=== PATIENT | female | born 1980 | race Caucasian/White ===

== ENCOUNTER 2016-06-21 19:42 | Inpatient (IN) | payer OTHER ==
--- NOTE | ~2016-06-21 | DS ---
Unit #: [id number] #: [id number] Patient: LING HART [id number] [address] [address] [id number] I MR#: [id number] NAME: LING HART ROOM: 573 Age: 36 Sex: F Admission Date: 06/21/2016 : 1980 Discharge Date: 06/24/2016 Attending Physician: Elaine Sanon M.D. Primary Care Physician: No Primary Care Physician DISCHARGE SUMMARY DISCHARGE DIAGNOSES 1. Acute hypercapnic/hypoxic respiratory failure requiring ventilation. 2. Elevated troponin secondary to non-ST myocardial infarction elevation, type 2, from drug abuse. 3. Sepsis from pneumonia with septic shock requiring intravenous Levophed. 4. Drug overdose with heroin IV and amphetamines. 5. Pneumonia, most likely aspiration. 6. Acute kidney injury. 7. Hypoglycemia. 8. Moderate protein malnutrition. 9. Hypercalcemia. 10. Hyperphosphatemia. 11. Anemia, no acute bleeding. 12. Urinary tract infection. CONSULTATION Dr. Persaud. PROCEDURES None. LAB DATA ABG - pH 7.22, carbon dioxide 55, oxygen 140. BMP on discharge - sodium 139, potassium 3.9, creatinine 0.6, albumin 2.3, magnesium 1.8. Liver enzymes normal. WBC 9.6, hemoglobin 10.3, platelets 174. IMAGING: Chest x-ray shows bilateral infiltrates. CAT scan of the head - no acute disease. Blood culture negative. Urine culture negative. Sputum culture not done. ALLERGIES Tetracycline. DISCHARGE MEDICATIONS Augmentin 875 mg p.o. b.i.d. for seven days. Unit #: [id number] #: [id number] Patient: LING HART HOSPITALIZATION COURSE 36-year-old admitted after drug abuse. Acute hypocapnic/hypoxic respiratory failure from intravenous drug abuse: The patient was intubated, later extubated. Sepsis from bilateral pneumonia, likely aspiration with septic shock requiring intravenous fluids, on Levophed, resolved: Patient received broad spectrum antibiotics. Upon time of discharge, the patient will be discharged on Augmentin for seven days. Patient was seen by Dr. Saucedo. Elevated troponin secondary to type 2 myocardial infarction from drug abuse: Patient was seen by cardiology. They recommended no workup needed. Drug abuse with heroin and amphetamines: Advised to quit. Acute kidney injury, most likely secondary to drug abuse and infection: Patient received IV fluids. At the time of discharge, creatinine stable. Hypoglycemia: Replaced with D5. Urinary tract infection: Patient received IV antibiotics. Culture is negative. Hypomagnesemia: Replaced with p.o. magnesium. Mild to moderate protein malnutrition: Advised high calorie diet. Patient discharged home. Follow with family physician in one week time. Follow with Dr. Olivas in two weeks time. Dictated by... Klaudia Gamble/yazan TD: 06/30/2016 11:00 JOB #: [id number] DISCHARGE SUMMARY Page 1 of 1 X Elaine Sanon MD X DISCHARGE SUMMARY
--- NOTE | ~2016-06-21 | CR72 ---
[facility] A Service [facility] RADIOLOGY TEXT RESULTS PATIENT: LING HART LOCATION: [facility] : 81 UNIT #: [id number] AGE: [address]: Elaine Sanon MD SEX: F ORDER DR: [id number] [address] [place], [place] [address] [id number] I MR#: [id number] Acc #: [id number] NAME: LING HART : 1980 SEX: F STUDY DATE/TIME: 06/22/2016 2:28 UNIT: [facility] ROOM: [facility] STUDY DESCRIPTION: CR Chest Single View Portable Attending Physician: Elaine Sanon M.D. Ordering Physician: Marlin Chatman M.D. Primary Care Physician: Primary Care Physician No MEDICAL IMAGING REPORT This report is preliminary unless electronic signature is present REVISED REPORT EXAM AP portable chest, 06/22/2016. HISTORY PICC placement. Respiratory failure. Endotracheal tube in place. TECHNIQUE AP portable chest x-ray. FINDINGS Newly placed right arm PICC is in good position with tip in the [id number] SVC. Endotracheal tube remains in good position. There is significantly improved overall lung expansion since the earlier study, and diffuse interstitial infiltrate or edema has improved. Mild interstitial opacity in the perihilar regions. No airspace consolidation, pneumothorax or pleural effusion. Heart size normal. Feeding tube in good position within the stomach. IMPRESSION 1. Newly placed PICC in good position. 2. Improved overall lung expansion with improvement in diffuse interstitial pulmonary edema since the earlier exam. ACCESSION NUMBER REVISED Dictated by... [facility] A Service [facility] RADIOLOGY TEXT RESULTS PATIENT: LING HART LOCATION: [facility] : 81 UNIT #: [id number] AGE: [address]: Elaine Sanon MD SEX: F ORDER DR: Ranjan Gil M.D. THIS IS AN ELECTRONICALLY VERIFIED REPORT Ranjan Gil M.D. at 06/24/2016 9:51 PM SARAH/mehdi TD: 06/22/2016 12:35 JOB #: [id number] MEDICAL IMAGING REPORT Page 1 of 1 COPY
--- NOTE | ~2016-06-21 | CO ---
Unit #: [id number] #: [id number] Patient: LING HART [id number] [facility]. [place], [place] [address] [id number] I MR#: [id number] NAME: LING HART ROOM: 573 Age: 36 Sex: F Admission Date: 06/21/2016 : 1980 Attending Physician: Elaine Sanon M.D. Consultation Date: 06/22/2016 CONSULTATION REPORT HISTORY OF PRESENT ILLNESS This is a 36-year-old white female patient, admitted with drug overdose. A bystander at the [facility] called EMS, who found her blood sugar to be 22. The patient was given D50. She had respiratory failure and she was intubated. Drug screen was positive for amphetamines, opioids. She also has history of heroin abuse. She has no history of prior myocardial infarction or congestive heart failure. No history of rheumatic fever or congenital heart disease. Chest x-ray shows bilateral infiltrates possibly aspiration pneumonia. She has been treated with antibiotics. She was hypotensive and was treated with the Levophed. She is going to be extubated today. Her EKG shows normal sinus rhythm, nonspecific ST-T changes. Her troponin today was found to be 0.98. She has no hypertension, diabetes, or hyperlipidemia. PERSONAL HISTORY She is a nonsmoker. Does not drink alcohol. FAMILY HISTORY Negative for premature coronary artery disease or sudden . PAST SURGICAL HISTORY None. REVIEW OF SYSTEMS No fever, chills, night sweats, or weight loss. The rest is negative according to the chart. PHYSICAL EXAMINATION VITAL SIGNS: Blood pressure 115/80, heart rate 70 per minute, respiratory rate is 16 per minute. GENERAL APPEARANCE: The patient is well developed. HEENT: Oral mucosa without cyanosis or pallor. No xanthelasma. NECK: No JVD. CARDIOVASCULAR: Regular rate and rhythm. PMI is nondisplaced on auscultation. S1 and S2 normal. No S3, S4, murmur, rubs, or clicks noted. VASCULAR: Carotid pulses are brisk without bruit. Abdominal aorta without bruit. Femoral and pedal pulses are normal with normal pulse amplitude. LUNGS: Clear to auscultation without rales, rhonchi, or wheezes. No accessory muscle use noted. ABDOMEN: Soft, nontender. No hepatosplenomegaly. RECTAL: Deferred. EXTREMITIES: Warm and dry. No cyanosis or clubbing. No pedal edema. MUSCULOSKELETAL: No scoliosis. Unit #: [id number] #: [id number] Patient: LING HART DERMATOLOGY: No stasis dermatitis. NEUROLOGIC: Alert and oriented x3. Pleasant affect. DIAGNOSTIC STUDIES LABORATORY RESULTS: Glucose 107, BUN 24, creatinine 1.0, sodium 138, potassium 4.3, magnesium 2.2. WBC 5.7, hemoglobin 12, hematocrit is 36.6, and platelet count 205,000. IMPRESSION 1. Drug overdose. 2. Acute respiratory failure. 3. Bilateral pneumonia, possibly aspiration pneumonia. 4. Elevated troponin, type 2 infarct. PLAN We will get an echocardiogram. The patient will be extubated today. We will follow with you. Thank you for letting me participate in her care. Dictated by... Ramez Persaud M.D. CRIS/allan TD: 06/23/2016 01:42 JOB #: [id number] CONSULTATION REPORT Page 1 of 1 X Ramez Persaud MD X CONSULTATION REPORT
--- NOTE | ~2016-06-21 | CR72 ---
[facility] A Service of [facility] & [facility] RADIOLOGY TEXT RESULTS PATIENT: LING HART LOCATION: [facility] 573-01 : [birth year] UNIT #: [id number] AGE: [address]: Elaine Sanon MD SEX: F ORDER DR: [id number] [facility] [address] [facility]. [place], [place] [address] [id number] I MR#: [id number] Acc #: [id number] NAME: LING HART : 1980 SEX: F STUDY DATE/TIME: 06/21/2016 16:49 UNIT: [facility] ROOM: [facility] STUDY DESCRIPTION: CR Chest Single View Portable Attending Physician: Elaine Sanon M.D. Ordering Physician: Aron Hanley M.D. Primary Care Physician: Primary Care Physician No MEDICAL IMAGING REPORT This report is preliminary unless electronic signature is present EXAM Portable chest 06/21/2016 INDICATIONS Intubation today, mental status changes today with shortness of air. FINDINGS AP portable chest was obtained. No comparison. Cardiac mediastinal contours are normal. There are diffuse bilateral infiltrates which probably reflect edema, although edema pneumonia not excluded. No pneumothorax is seen. ET tube in good position in the mid to lower trachea. IMPRESSION Well-positioned ET tube. Diffuse bilateral infiltrates probably reflect edema, although pneumonia could have this appearance as well. Dictated by... Ancelmo Marin Jr., M.D. THIS IS AN ELECTRONICALLY VERIFIED REPORT Ancelmo Marin Jr., M.D. at 06/25/2016 2:10 PM [place]/chip TD: 06/22/2016 07:31 JOB #: [id number] MEDICAL IMAGING REPORT Page 1 of 1 COPY
--- NOTE | ~2016-06-21 | EKG ---
PATIENT: ROGELIO MEDINA UNIT #: [id number] Ventricular Rate: 64 BPM Atrial Rate: 64 BPM P-R Interval: 166 ms QRS Duration: 122 ms Q-T Interval: 516 ms QTC Calculation(Bezet): 532 ms P Newhall: 74 degrees Calculated R Newhall: 68 degrees Calculated T Newhall: 65 degrees Diagnosis Line: Normal sinus rhythm Diagnosis Line: Non-specific intra-ventricular conduction delay Diagnosis Line: Borderline ECG Diagnosis Line: No previous ECGs available Diagnosis Line: Confirmed by GERARDO PRADO MD ([id number]) on Diagnosis Line: 06/22/2016 2:24:36 PM INTERPRETING MD: JOHAN PATRICIO
--- NOTE | ~2016-06-21 | CR7 ---
[facility] A Service of [facility] & [facility] RADIOLOGY TEXT RESULTS PATIENT: LING HART LOCATION: [address] : [birth year] UNIT #: [id number] AGE: [address]: Elaine Sanon MD SEX: F ORDER DR: [id number] [facility] [address] [facility] [place], [place] [address] [id number] I MR#: [id number] Acc #: [id number] NAME: ROGELIO MEDINA : 1980 SEX: F STUDY DATE/TIME: 06/22/2016 0:02 UNIT: [facility] ROOM: [facility] STUDY DESCRIPTION: CR Abdomen Single AP View Attending Physician: Elaine Sanon M.D. Ordering Physician: Marlin Chatman M.D. Primary Care Physician: Primary Care Physician No MEDICAL IMAGING REPORT This report is preliminary unless electronic signature is present EXAM Portable abdomen for Dobbhoff tube placement 06/22/2016 HISTORY Dobbhoff tube placement. FINDINGS Newly placed Dobbhoff tube is in good position within the mid and upper stomach at 0002 hours on 06/22/2016. Dictated by... Ranjan Gil M.D. THIS IS AN ELECTRONICALLY VERIFIED REPORT Ranjan Gil M.D. at 06/22/2016 9:42 PM SARAH/ashley TD: 06/22/2016 12:07 JOB #: [id number] MEDICAL IMAGING REPORT Page 1 of 1 COPY
--- NOTE | ~2016-06-21 | CT71 ---
[facility] A Service of [facility] RADIOLOGY TEXT RESULTS PATIENT: LING HART LOCATION: [address] : [birth year] UNIT #: [id number] AGE: [address]: Elaine Sanon MD SEX: F ORDER DR: [id number] [facility] [address] [facility]. [place], [place] [address] [id number] I MR#: [id number] Acc #: [id number] NAME: ROGELIO MEDINA : 1980 SEX: F STUDY DATE/TIME: 06/21/2016 17:02 UNIT: [facility] ROOM: [facility] STUDY DESCRIPTION: CT Head Wo Contrast Attending Physician: Elaine Sanon M.D. Ordering Physician: Aron Hanley M.D. MEDICAL IMAGING REPORT This report is preliminary unless electronic signature is present EXAM Head CT 06/21/2016 INDICATIONS Patient confused, combative, disoriented today prior to arrival and subsequently was intubated. Additional history is unknown at this time. TECHNIQUE This CT exam was performed with one or more of the following radiation dose reduction techniques: Automatic exposure control, adjustment of mA and/or kV according to patient size, and iterative reconstruction. FINDINGS Axial images were obtained from the base of the vertex without contrast. No comparison. Ventricular size and configuration are normal. No acute infarct or hemorrhage is seen. There are no masses. There are no skull fractures. IMPRESSION Negative noncontrast head CT Dictated by... Ancelmo Marin Jr., M.D. THIS IS AN ELECTRONICALLY VERIFIED REPORT Ancelmo Marin Jr., M.D. at 06/22/2016 4:22 PM NATASHAK/chip TD: 06/22/2016 07:44 JOB #: [id number] [facility] A Service of [facility] RADIOLOGY TEXT RESULTS PATIENT: LING HART LOCATION: [place] [address] : [birth year] UNIT #: [id number] AGE: [address]: Elaine Sanon MD SEX: F ORDER DR: MEDICAL IMAGING REPORT Page 1 of 1 COPY
--- NOTE | ~2016-06-21 | CR72 ---
[facility] A Service of [facility] RADIOLOGY TEXT RESULTS PATIENT: ARIANNA VOGEL LOCATION: [facility] 573-01 : 81 UNIT #: [id number] AGE: [address]: Elaine Sanon MD SEX: F ORDER DR: [id number] [facility] [address] [facility]. [place], [place] [address] [id number] I MR#: [id number] Acc #: [id number] NAME: ARIANNA VOGEL : 1980 SEX: F STUDY DATE/TIME: 06/23/2016 3:26 UNIT: [facility] ROOM: [facility] STUDY DESCRIPTION: CR Chest Single View Portable Attending Physician: Elaine Sanon M.D. Ordering Physician: Elaine Sanon M.D. Primary Care Physician: No Primary Care Physician MEDICAL IMAGING REPORT This report is preliminary unless electronic signature is present EXAM AP portable chest, 06/23/2016. Arianna Vogel, although she is listed in the DR as Roland Abdul. which is a Jenny holt name. There are all kinds of demographic mismatches here with priors because they admitted her as the Jenny Holt. HISTORY 36-year-old female with respiratory failure. Follow up cardiopulmonary status. TECHNIQUE AP portable chest x-ray. FINDINGS Mild diffuse mixed interstitial and airspace opacity, greatest in the perihilar regions, most likely representing pulmonary edema. This appears slightly increased since yesterday but is significantly improved since 06/21/2016. Peripheral lungs are clear. No visible pleural effusion. Heart size normal. PICC in good position. IMPRESSION Jdrl-jm-hyxtsaee diffuse interstitial opacity, greatest in the perihilar regions, most likely representing pulmonary edema. This has slightly increased since yesterday but is likely exaggerated by shallow lung expansion. Dictated by... Ranjan Gil M.D. THIS IS AN ELECTRONICALLY VERIFIED REPORT Ranjan Gil M.D. at 06/23/2016 10:06 PM RGW/gz [facility] A Service of [facility] & [facility] RADIOLOGY TEXT RESULTS PATIENT: ARIANNA VOGEL LOCATION: [address] 573-01 : [birth year] UNIT #: [id number] AGE: [address]: Elaine Sanon MD SEX: F ORDER DR: TD: 06/23/2016 13:25 JOB #: [id number] MEDICAL IMAGING REPORT Page 1 of 1 COPY
--- NOTE | ~2016-06-21 | CR63 ---
[facility] A Service of [facility] & [facility] RADIOLOGY TEXT RESULTS PATIENT: LING HART LOCATION: [facility] 573-01 : 81 UNIT #: [id number] AGE: [address]: Elaine Sanon MD SEX: F ORDER DR: [id number] [facility] [address] [facility]. [place], [place] [address] [id number] I MR#: [id number] Acc #: [id number] NAME: LING HART : 1980 SEX: F STUDY DATE/TIME: 06/23/2016 16:15 UNIT: [facility] ROOM: 3 STUDY DESCRIPTION: CR Chest 2 View Attending Physician: Elaine Sanon M.D. Ordering Physician: Elaine Sanon M.D. Primary Care Physician: No Primary Care Physician MEDICAL IMAGING REPORT This report is preliminary unless electronic signature is present EXAM PA and lateral chest dated 06/23/2016 COMPARISON 06/23/16. HISTORY Shortness of breath for a few days, pneumonia FINDINGS PA and lateral views of the chest are obtained. The heart size is normal. The lungs shows some patchy perihilar pulmonary infiltrates unchanged from the previous study. There is an infiltrate seen posteriorly at the left base best appreciated on the lateral view. CONCLUSION Patchy perihilar pulmonary infiltrates unchanged. Left lower lobe infiltrate best appreciated on the lateral radiograph. Dictated by... Sonido Green M.D. THIS IS AN ELECTRONICALLY VERIFIED REPORT Sonido Green M.D. at 06/24/2016 10:35 AM [place] TD: 06/23/2016 22:15 JOB #: [id number] MEDICAL IMAGING REPORT Page 1 of 1 COPY
--- NOTE | ~2016-06-21 | HP ---
Unit #: [id number] #: [id number] Patient: ROGELIO MEDINA [id number] [address] [place], [place] [address] [id number] MR#: [id number] NAME: ROGELIO MEDINA ROOM: 14917 Age: Sex: F Admission Date: 06/21/2016 : Attending Physician: Debo Drake M.D. Primary Care Physician: Primary Care Physician No HISTORY AND PHYSICAL CHIEF COMPLAINT Altered mental status. HISTORY OF PRESENT ILLNESS The patient is brought to the emergency room with altered mental status. The patient was found have sugar of 22 in the field by EMS. The patient was given D50. The patient was suspected overdose. The EMS was called for reported overdose. The patient has unknown name and unknown date of . The call [facility]. The patient was found to be in moderate respiratory distress at the arrival and more incoherent. The patient received 2 amps of D50. Then patient was intubated to protect the airways. The patient is positive for a drug overdose with amphetamines and opiates. The patient is unable to provide any history as the patient is status post intubation and sedation on Versed. The patient's chest x-ray shows bilateral infiltrate concerning for pneumonia versus edema. Patient has been admitted for the above reasons. PAST MEDICAL HISTORY None. PAST SURGICAL HISTORY None. HOME MEDICATIONS No information available. ALLERGIES No known allergies. FAMILY HISTORY Unable to obtain. REVIEW OF SYSTEMS Unable to obtain. PHYSICAL EXAMINATION VITAL SIGNS: Patient is on a Chelsea Hugger with a temperature of 92.1 at the time of arrival, pulse 69, blood pressure 116/86, saturating 100% on ventilation. HEENT: Atraumatic, normocephalic. Pupils sluggish to react. NECK: Supple. Status post right IJ. LUNGS: Coarse breath sounds and decreased breath sounds. Decreased air entry at the bases. Positive for rales. Unit #: [id number] #: [id number] Patient: ROGELIO MEDINA HEART: Regular rate and rhythm. ABDOMEN: Soft, positive bowel sounds. EXTREMITIES: No cyanosis, no clubbing. NEUROLOGIC: Status post intubation and sedation. PSYCHIATRIC: Unable to assess. DIAGNOSTIC STUDIES LABORATORY: pH 7.22, pCO2 is 55, pO2 is 140, bicarb 22.7, oxygen saturation 97.9. Glucose 89, BUN 22, creatinine 1.6, sodium 139, potassium 2.8, chloride 103, bicarb 23, calcium 8.7, phosphorus 8.1, magnesium 2.2, total protein 7.5, albumin 3.8, AST 107, ALT 52, alkaline phosphatase is 91. Amylase 44, lipase 78. Ammonia is 45. Lactic acid is 5.4. INR is 1. Troponin less than 0.05. CKMB 8.1. WBC 9.3, hemoglobin 13.6, hematocrit 42.1, platelets 301, neutrophils 35.4. Urine toxicology screen is positive for amphetamines and opiates. UA shows 2+ protein, 1+ urobilinogen, 10-25 wbc's. IMAGING: CT of the head shows no acute intracranial pathology. CARDIOVASCULAR: EKG shows normal sinus rhythm, nonspecific intraventricular conduction delay with QTC of 532. ASSESSMENT AND PLAN 1. Acute respiratory failure. 2. Hypoglycemia. 3. Drug overdose. 4. Acute kidney injury. 5. Sepsis. 6. Pneumonia versus edema. PLAN 1. Admit patient as inpatient in ICU. 2. Patient will have IV placed with D5 NS at 125 mL per hour. 3. Continue with empiric antibiotics with vancomycin and Zosyn. 4. Replace the potassium per protocol. 5. Continue sepsis protocol. 6. Check echocardiogram. 7. Check troponins x2. 8. Obtain records as police have been present, sent to the scene. 9. Further recommendations will follow as more lab results become available. Dictated by Klaudia Gilbert TD: 06/21/2016 20:17 JOB #: [id number] Unit #: [id number] #: [id number] Patient: ROGELIO MEDINA HISTORY AND PHYSICAL X X HISTORY AND PHYSICAL
[2016-06-21 17:10] LABS: POC - CKMB 8.1 ng/mL (0.0-7.9); POC - TROPONIN <0.05 ng/mL (<=0.05)
[2016-06-21 17:13] LABS: BASOPHIL% 0.2 % (0-2.5); EOSINOPHIL% 0.2 % (0.0-7.0); HEMATOCRIT 42.1 % (35.0-45.0); HEMOGLOBIN 13.6 gm/dL (12.0-16.0); LYMPHOCYTE# 1.2 X10e3 (1.0-3.5); LYMPHOCYTE% 12.7 % (17.0-45.0); MEAN CELL VOLUME 87.6 FL (83-96); MEAN CORPUSCULAR HEMOGLOBIN 28.3 PG (28-34); MEAN CORPUSCULAR HGB CONC 32.3 g/dL (30-36); MEAN PLATELET VOLUME 8.3 FL (6.5-11.5); MONOCYTE# 0.1 X10e3 (0-1.0); MONOCYTE% 1.5 % (3.0-12.0); NEUTROPHIL% 85.4 % (40-75); PLATELET COUNT 301 X10e3 (140-420); RED CELL DISTRIBUTION WIDTH 14.6 % (11.0-15.5); WHITE BLOOD COUNT 9.3 X10e3 (4.0-10.5)
[2016-06-21 17:17] LABS: URINE APPEARANCE CLOUDY; URINE BILIRUBIN NEG (NEG); URINE BLOOD 1+ (NEG); URINE COLOR YELLOW; URINE GLUCOSE NEG (NEG); URINE KETONE NEG (NEG); URINE LEUKOCYTE ESTERASE NEG (NEG); URINE NITRATE NEG (NEG); URINE PH 5.5 (5-8); URINE PROTEIN 2+ (NEG)
[2016-06-21 17:19] LABS: PARTIAL THROMBOPLASTIN TIME 24.4 SECONDS (23.5-31.3); PROTHROMBIN TIME (PATIENT) 10.7 SECONDS (9.6-11.5)
[2016-06-21 17:20] LABS: CULTURE INDICATED? YES; URBCS1 AUWI 0-2 /[HPF] (0-2); URINE BACTERIA AUWI 1+ (NEGATIVE); URINE SQUAMOUS EPITHELIAL CELL MOD /[HPF]
[2016-06-21 17:21] LABS: DIFF IND NO
[2016-06-21 17:27] LABS: ALBUMIN SERUM 3.8 g/dL (3.5-5.0); BILIRUBIN, DIRECT 0.2 mg/dL (0.0-0.2); BILIRUBIN,INDIRECT 0.6 mg/dL (0.0-0.9); BILIRUBIN,TOTAL 0.8 mg/dL (0.2-2.0); BUN/CREATININE RATIO 13.75; CALCIUM SERUM 8.7 mg/dL (8.4-10.2); CREATININE SERUM 1.6 mg/dL (0.6-1.4); GLOM FILT RATE Estimated 28.4 mL/min (>60); MAGNESIUM 2.2 mg/dL (1.6-3.0); PROTEIN TOTAL SERUM 7.5 g/dL (6.0-8.3)
[2016-06-21 17:35] LABS: PHOSPHOROUS 8.1 mg/dL (2.5-4.6); POTASSIUM 2.8 mmol/L (3.5-5.1); U HYALINE CASTS AUWI 0-2 /[LPF]; URINE GRANULAR CAST 0-2 /[HPF]; URINE MUCUS PRESENT; URINE SOURCE CATH; URINE WHITE BLOOD CELL CAST 0-2 /[HPF]
[2016-06-21 17:38] LABS: ARTERIAL BLD GAS O2 SATURATION 97.9 % (90.0-100.0); ARTERIAL BLOOD GAS CARBOXY HB 0.1 %sat (0.0-9.0); ARTERIAL BLOOD GAS HCO3 22.7 mmol/L; ARTERIAL BLOOD GAS MET HB 0.8 %sat (0.0-2.0); ARTERIAL BLOOD GAS pH 7.224 (7.350-7.450)
[2016-06-21 17:40] LABS: AMPHETAMINE POS (NEG); BARBITURATES NEG (NEG); BENZODIAZEPINES NEG (NEG); COCAINE NEG (NEG); MARIJUANA NEG (NEG); OPIATES POS (NEG); TRICYCLIC ANTIDEPRESSANTS NEG (NEG); U METHADONE NEG (NEG)
[2016-06-21 17:40] LABS: ARTERIAL BLOOD GAS ALLEN TEST NORMAL; ARTERIAL BLOOD GAS ART SITE RIGHT RADIAL; ARTERIAL BLOOD GAS VENT MODE AC; ARTERIAL DRAW? YES
[2016-06-21 21:24] LABS: ARTERIAL BLD GAS O2 SATURATION 99.9 % (90.0-100.0); ARTERIAL BLOOD GAS HCO3 24.5 mmol/L; ARTERIAL BLOOD GAS MET HB 0.8 %sat (0.0-2.0); ARTERIAL BLOOD GAS PCO2 42.5 mmHg (35.0-45.0); ARTERIAL BLOOD GAS pH 7.368 (7.350-7.450)
[2016-06-21 21:28] LABS: ARTERIAL BLOOD GAS ART SITE RIGHT RADIAL; ARTERIAL BLOOD GAS DELIVERY VENT; ARTERIAL BLOOD GAS VENT MODE A/C; ARTERIAL DRAW? YES
[2016-06-21 21:46] LABS: CALCIUM SERUM 8.4 mg/dL (8.4-10.2); CREATININE SERUM 1.2 mg/dL (0.6-1.4); GLOM FILT RATE Estimated 39.6 mL/min (>60)
[2016-06-22 04:40] LABS: ARTERIAL BLD GAS O2 SATURATION 99.9 % (90.0-100.0); ARTERIAL BLOOD GAS HCO3 22.3 mmol/L; ARTERIAL BLOOD GAS MET HB 0.7 %sat (0.0-2.0); ARTERIAL BLOOD GAS PCO2 33.3 mmHg (35.0-45.0); ARTERIAL BLOOD GAS pH 7.434 (7.350-7.450)
[2016-06-22 05:23] LABS: ARTERIAL BLOOD GAS ALLEN TEST NORMAL; ARTERIAL BLOOD GAS ART SITE RIGHT RADIAL; ARTERIAL DRAW? YES
[2016-06-22 05:24] LABS: ARTERIAL BLOOD GAS VENT MODE AC
[2016-06-22 05:30] LABS: BASOPHIL% 0.1 % (0-2.5); EOSINOPHIL% 0.4 % (0.0-7.0); HEMATOCRIT 36.6 % (35.0-45.0); LYMPHOCYTE# 0.9 X10e3 (1.0-3.5); MEAN CELL VOLUME 85.9 FL (83-96); MEAN CORPUSCULAR HEMOGLOBIN 28.1 PG (28-34); MEAN CORPUSCULAR HGB CONC 32.7 g/dL (30-36); MEAN PLATELET VOLUME 8.8 FL (6.5-11.5); MONOCYTE# 0.3 X10e3 (0-1.0); MONOCYTE% 4.8 % (3.0-12.0); NEUTROPHIL# 4.5 X10e3 (1.5-7.1); NEUTROPHIL% 78.7 % (40-75); PLATELET COUNT 205 X10e3 (140-420); RED BLOOD COUNT 4.25 X10e (3.90-5.30); RED CELL DISTRIBUTION WIDTH 14.3 % (11.0-15.5); WHITE BLOOD COUNT 5.7 X10e3 (4.0-10.5)
[2016-06-22 05:42] LABS: DIFF IND NO
[2016-06-22 06:09] LABS: GLOM FILT RATE Estimated 48.8 mL/min (>60); POTASSIUM 4.3 mmol/L (3.5-5.1)
[2016-06-22 13:10] LABS: ARTERIAL BLD GAS O2 SATURATION 97.4 % (90.0-100.0); ARTERIAL BLOOD GAS ALLEN TEST NORMAL; ARTERIAL BLOOD GAS CARBOXY HB 0.2 %sat (0.0-9.0); ARTERIAL BLOOD GAS HCO3 21.6 mmol/L; ARTERIAL BLOOD GAS MET HB 1.6 %sat (0.0-2.0); ARTERIAL BLOOD GAS PCO2 40.4 mmHg (35.0-45.0); ARTERIAL BLOOD GAS pH 7.337 (7.350-7.450); ARTERIAL DRAW? YES
[2016-06-22 13:11] LABS: ARTERIAL BLOOD GAS ART SITE LEFT RADIAL; ARTERIAL BLOOD GAS DELIVERY VENT; ARTERIAL BLOOD GAS VENT MODE CPAP
[2016-06-22 13:29] LABS: INFLUENZA A NEG (NEG); INFLUENZA B NEG (NEG)
[2016-06-23 05:12] LABS: ARTERIAL BLD GAS O2 SATURATION 95.7 % (90.0-100.0); ARTERIAL BLOOD GAS CARBOXY HB 0.4 %sat (0.0-9.0); ARTERIAL BLOOD GAS HCO3 21.8 mmol/L; ARTERIAL BLOOD GAS MET HB 0.8 %sat (0.0-2.0); ARTERIAL BLOOD GAS PCO2 34.6 mmHg (35.0-45.0); ARTERIAL BLOOD GAS PO2 87.4 mmHg (80.0-100); ARTERIAL BLOOD GAS pH 7.407 (7.350-7.450)
[2016-06-23 05:24] LABS: BASOPHIL% 0.2 % (0-2.5); EOSINOPHIL# 0.1 X10e3 (0-0.7); EOSINOPHIL% 1.3 % (0.0-7.0); HEMATOCRIT 30.6 % (35.0-45.0); HEMOGLOBIN 10.1 gm/dL (12.0-16.0); LYMPHOCYTE% 9.4 % (17.0-45.0); MEAN CELL VOLUME 86.2 FL (83-96); MEAN CORPUSCULAR HEMOGLOBIN 28.5 PG (28-34); MEAN CORPUSCULAR HGB CONC 33.1 g/dL (30-36); MEAN PLATELET VOLUME 8.6 FL (6.5-11.5); MONOCYTE# 0.3 X10e3 (0-1.0); MONOCYTE% 2.5 % (3.0-12.0); NEUTROPHIL# 8.9 X10e3 (1.5-7.1); NEUTROPHIL% 86.6 % (40-75); PLATELET COUNT 160 X10e3 (140-420); RED BLOOD COUNT 3.54 X10e (3.90-5.30); RED CELL DISTRIBUTION WIDTH 14.8 % (11.0-15.5)
[2016-06-23 05:25] LABS: DIFF IND NO; WHITE BLOOD COUNT 10.3 X10e3 (4.0-10.5)
[2016-06-23 05:28] LABS: ARTERIAL BLOOD GAS ALLEN TEST NORMAL; ARTERIAL BLOOD GAS ART SITE RIGHT RADIAL; ARTERIAL BLOOD GAS DELIVERY NASAL CANNULA; ARTERIAL DRAW? YES
[2016-06-23 06:17] LABS: ALBUMIN SERUM 2.4 g/dL (3.5-5.0); ALKALINE PHOSPHATASE 44 U/L (32-92); ALT (SGPT) 33 U/L (10-40); AST (SGOT) 30 U/L (10-42); BILIRUBIN,TOTAL 0.3 mg/dL (0.2-2.0); BLOOD UREA NITROGEN 11 mg/dL (9-23); BUN/CREATININE RATIO 15.71; CALCIUM SERUM 7.4 mg/dL (8.4-10.2); CARBON DIOXIDE 22 mmol/L (22-31); CHLORIDE 110 mmol/L (100-111); CREATININE SERUM 0.7 mg/dL (0.6-1.4); GLOM FILT RATE Estimated ABOVE60 mL/min (>60); GLUCOSE FASTING 90 mg/dL (70-110); MAGNESIUM 1.5 mg/dL (1.6-3.0); POTASSIUM 3.7 mmol/L (3.5-5.1); PROTEIN TOTAL SERUM 4.8 g/dL (6.0-8.3); SODIUM 137 mmol/L (135-145)
[2016-06-23 14:51] LABS: URINE APPEARANCE CLEAR; URINE BILIRUBIN NEG (NEG); URINE BLOOD NEG (NEG); URINE COLOR YELLOW; URINE GLUCOSE NEG (NEG); URINE KETONE NEG (NEG); URINE LEUKOCYTE ESTERASE TRACE (NEG); URINE NITRATE NEG (NEG); URINE PROTEIN NEG (NEG); URINE SPECIFIC GRAVITY 1.017 (1.003-1.035)
[2016-06-23 14:53] LABS: URINE BACTERIA AUWI NEG (NEGATIVE); URINE SQUAMOUS EPITHELIAL CELL OCC /[HPF]
[2016-06-23 14:56] LABS: CULTURE INDICATED? NO
[2016-06-24 08:08] LABS: BASOPHIL% 0.2 % (0-2.5); EOSINOPHIL# 0.2 X10e3 (0-0.7); EOSINOPHIL% 2.2 % (0.0-7.0); HEMATOCRIT 31.6 % (35.0-45.0); HEMOGLOBIN 10.3 gm/dL (12.0-16.0); LYMPHOCYTE# 1.3 X10e3 (1.0-3.5); LYMPHOCYTE% 13.2 % (17.0-45.0); MEAN CELL VOLUME 86.7 FL (83-96); MEAN CORPUSCULAR HEMOGLOBIN 28.3 PG (28-34); MEAN CORPUSCULAR HGB CONC 32.6 g/dL (30-36); MEAN PLATELET VOLUME 8.7 FL (6.5-11.5); MONOCYTE# 0.3 X10e3 (0-1.0); MONOCYTE% 3.4 % (3.0-12.0); NEUTROPHIL# 7.7 X10e3 (1.5-7.1); PLATELET COUNT 174 X10e3 (140-420); RED BLOOD COUNT 3.64 X10e (3.90-5.30); RED CELL DISTRIBUTION WIDTH 14.6 % (11.0-15.5); WHITE BLOOD COUNT 9.6 X10e3 (4.0-10.5)
[2016-06-24 08:10] LABS: DIFF IND NO
[2016-06-24 08:32] LABS: ALBUMIN SERUM 2.3 g/dL (3.5-5.0); ALKALINE PHOSPHATASE 57 U/L (32-92); ALT (SGPT) 25 U/L (10-40); AST (SGOT) 18 U/L (10-42); BILIRUBIN,TOTAL 0.5 mg/dL (0.2-2.0); BLOOD UREA NITROGEN 7 mg/dL (9-23); BUN/CREATININE RATIO 11.66; CALCIUM SERUM 8.1 mg/dL (8.4-10.2); CARBON DIOXIDE 24 mmol/L (22-31); CHLORIDE 108 mmol/L (100-111); CREATININE SERUM 0.6 mg/dL (0.6-1.4); GLOM FILT RATE Estimated ABOVE60 mL/min (>60); GLUCOSE FASTING 80 mg/dL (70-110); MAGNESIUM 1.8 mg/dL (1.6-3.0); POTASSIUM 3.9 mmol/L (3.5-5.1); PROTEIN TOTAL SERUM 5.1 g/dL (6.0-8.3); SODIUM 139 mmol/L (135-145)
[2016-06-24] MEDS ORDERED: AUGMENTIN875 MG PO (14:30)
== END 2016-06-24 20:50 | disposition home or self-care (01) | DRG 917 ==
LOC: CED 19:42 → CEDOF 19:51 → CICCU3 21:47 → C5C 06-23 20:32
PROVIDERS: Emergency Medicine; Internal Medicine
PROC: 0DH67UZ Insertion of Feeding Device into Stomach, Via Natural or Artificial Opening (ICD-10-PCS; principal; 2016-06-21)
PROC: 0BH17EZ Insertion of Endotracheal Airway into Trachea, Via Natural or Artificial Opening (ICD-10-PCS; 2016-06-21)
PROC: 5A1935Z Respiratory Ventilation, Less than 24 Consecutive Hours (ICD-10-PCS; 2016-06-21)
PROC: 02HV33Z Insertion of Infusion Device into Superior Vena Cava, Percutaneous Approach (ICD-10-PCS; 2016-06-22)
DX: T40.1X1A Poisoning by heroin, accidental (unintentional), initial encounter (principal); J96.01 Acute respiratory failure with hypoxia; I21.4 Non-ST elevation (NSTEMI) myocardial infarction; J96.02 Acute respiratory failure with hypercapnia; R65.21 Severe sepsis with septic shock; J69.0 Pneumonitis due to inhalation of food and vomit; A41.9 Sepsis, unspecified organism; N17.9 Acute kidney failure, unspecified; N39.0 Urinary tract infection, site not specified; E44.0 Moderate protein-calorie malnutrition; T43.621A Poisoning by amphetamines, accidental (unintentional), initial encounter; F11.10 Opioid abuse, uncomplicated; E16.2 Hypoglycemia, unspecified; E83.42 Hypomagnesemia
CPT/HCPCS: 31500; 36415; 36600; 51702; 70450; 71010; 71020; 74000; 80048; 80053; 80076; 80307; 81003; 82140; 82150; 82308; 82553; 82803; 82947; 83036; 83605; 83690; 83735; 84100; 84484; 85025; 85610; 85730; 87040; 87086; 87804; 93005; 93306; 94002; 94003; 94760; 96361; 96374; 99291; 99292; J0696; J1650; J1940; J2250; J2543; J3370; J3475